=== PATIENT | female | born 1965 | race Caucasian/White ===

== ENCOUNTER 2017-07-10 09:25 | Emergency (ER) | payer BC ==
[~2017-07-10] VITALS: Ht 167.6 cm; Wt 68.0 kg
== END 2017-07-10 12:54 | disposition home or self-care (01) ==
LOC: ER 09:25
DX: S93.491A Sprain of other ligament of right ankle, initial encounter (principal); S93.691A Other sprain of right foot, initial encounter; X50.3XXA Overexertion from repetitive movements, initial encounter; Y93.01 Activity, walking, marching and hiking; Y92.488 Other paved roadways as the place of occurrence of the external cause; Y99.8 Other external cause status